=== PATIENT | male | born 2000 | race Caucasian/White ===

== ENCOUNTER 2021-12-18 12:34 | Emergency (ER) | payer OTHER, SELFPAY ==
[2021-12-18] VITALS (10 sets, daily range): BP systolic 95–120; BP diastolic 73–79; PULSE 50–84; RESP 12–22; TEMP 36.4; O2SAT 95–99
--- NOTE | ~2021-12-18 | CT_ITS ---
EXAMINATION: CT brain wo con DATE: 12/18/2021 14:54 INDICATION: Blurry vision. Paresthesias of right hand. TECHNIQUE: Computed tomography (CT) of the head was performed without intravenous contrast. The mA wa s adjusted according to patient size. Iterative reconstruction technique was employed. Exam dose: 60 5.33 mGy-cm total exam DLP. COMPARISON: None FINDINGS: Occasional septum pellucidum, normal variant. No intracranial mass lesion or hemorrhage or cerebrovascular accident. No midline shift or mass effect effect. No sellar or suprasellar mass lesio n. Normal ventricular size. No subdural or epidural hematoma. There is patchy soft tissue thickening of the ethmoid air cells. Included paranasal sinuses and masto id air cells are otherwise unremarkable. No fracture or bone destruction of the cranial vault. IMPRESSION: No significant intracranial abnormality or skull fracture Bilateral ethmoid soft tissue thickening Reviewed, dictated and finalized at [facility]. Reviewed, dictated and finalized at [facility].
--- NOTE | 2021-12-18 13:21 | ECG_ITS ---
Measurements Intervals [place] Rate: 60 P: 22 ID: [id number] QRS: 4 QRSD: 114 T: 32 QT: 381 QTc: 382 Interpretive Statements SINUS RHYTHM WITH MARKED SINUS ARRHYTHMIA VOLTAGE CRITERIA FOR LVH MINIMAL Q WAVES- HIGH LATERAL LEADS BASELINE WANDER- V1-V2 BORDERLINE ECG NO PREVIOUS ECG AVAILABLE FOR COMPARISON Electronically Signed On 12-18-2021 14:04:19 CDT by Venkata Nunez D.O.
[2021-12-18 13:51] LABS: Basophils Absolute Auto 0.1 K/mm3 (0.0-0.1); Basophils Percent Auto 0.7 % (0.2-1.2); Eosinophils Absolute Auto 0.1 K/mm3 (0-0.3); Eosinophils Percent Auto 1.6 % (0-4.4); Hemoglobin 15.9 g/dL (14.0-18.0); Immature Granulocyte Absolute 0.02 K/mm3 (0.00-0.031); Immature Granulocyte Percent A 0.3 % (0-0.5); Lymphocytes Absolute Auto 2.15 K/mm3 (0.9-3.2); Lymphocytes Percent Auto 28.8 % (18.3-44.2); Mean Corpuscular HGB Conc 33.8 g/dl (32-36); Mean Corpuscular Volume 94.6 fl (80-100); Mean Platelet Volume 9.9 fl (7.4-10.4); Monocytes Absolute Auto 0.6 K/mm3 (0.1-0.6); Monocytes Percent Auto 7.5 % (2.6-8.5); Neutrophils Absolute Auto 4.6 K/mm3 (1.3-6.7); Neutrophils Percent Auto 61.1 % (45.5-73.1); Platelet Count Result 197 k/mm3 (150-375); Red Blood Count 4.97 M/mm3 (4.6-6.20); Red Cell Distribution Width 11.9 % (11.5-14.5); White Blood Count 7.5 K/mm3 (4.5-10.0)
[2021-12-18 14:00] LABS: Alanine Aminotransferase 46 U/L (6-50); Albumin Level 4.5 g/dL (3.5-5.1); Alkaline Phosphatase 94 U/L (38-126); Anion Gap 11 mmol/L (8-16); Aspartate Amino Transferase 26 U/L (17-59); Bilirubin,Total 0.5 mg/dL (0.2-1.3); Blood Urea Nitrogen 18 mg/dL (9-20); Calcium 9.2 mg/dL (8.4-10.2); Carbon Dioxide 27 mmol/L (22-30); Chloride 99 mmol/L (98-107); Estimated CRCL calculation 162 ml/min; Estimated Glomerular Filt Rate > 60; Glucose 100 mg/dL (65-110); Potassium 4.3 mmol/L (3.4-5.0); Sodium 137 mmol/L (137-145)
--- NOTE | 2021-12-18 14:43 | ED.NEUROSD ---
HPI - Neuro Symptoms/Deficit General Chief Complaint: Neuro Symptoms/Deficit Stated Complaint: BLURRY VISION, HAND NUMBNESS SINCE YESTERDAY Time Seen by Provider: 12/18/21 14:23 History of Present Illness HPI Narrative: Patient is a healthy 21-year-old male here for evaluation with his grandmother for evaluation of a episode of right hand paresthesias and blurry vision yesterday. Patient states that he was driving his vehicle when he noticed that his vision in both eyes slightly blurry. He was still able to see out of both eyes. This lasted for several seconds. He then noticed a [id number]-[id number] sensation in his right hand, that lasted for about 15 minutes, resolved without intervention. Patient saw his primary care doctor today who recommended ED evaluation. Patient tells me that he has been experiencing intermittent blurry vision for the past 2 years. States it will always last for seconds at a time and resolve without intervention. He has not seen an eye doctor in several years, does wear corrective lenses, has not had this prescription updated. No headaches, nausea, vomiting, dizziness, changes to weight, pain in eyes or eye discharge. Review of Systems Review of Systems: Gen.: Denies fevers or chills Eyes: Reports blurry vision. Denies eye pain ENT: Denies congestion Respiratory: Denies shortness of breath or cough CV: Denies chest pain or palpitations GI: Denies abdominal pain nausea, emesis or diarrhea denies burning, urgency, frequency or hematuria Musculoskeletal: Denies back pain or muscle pain Neuro: Reports paresthesias in right hand. Skin: Denies rash Except as documented, all other systems reviewed and negative Exam Narrative: APPEARANCE: Well appearing, no pain in distress, well-nourished. Head: Normocephalic and atraumatic. EYES: Fatigable horizontal nystagmus noted with EOMs. Pupils are equal round and reactive to light. NOSE: No nasal drainage EARS: External ear normal in appearance THROAT: Oropharynx is clear. Mucous membranes are moist. NECK: Supple. No adenopathy, no masses. RESPIRATORY: Airway patent, respirations nonlabored. Clear to auscultation bilaterally, no rales, rhonchi, wheezing. CARDIOVASCULAR: Strong radial pulse. Regular rate and rhythm without murmurs, rubs, or gallops. ABDOMINAL: Normoactive bowel sounds. Soft, nontender, nondistended. No rebound tenderness or guarding. MUSCULOSKELETAL: Extremities are warm and well-perfused. Moves all extremities well. No edema. NEURO: 5-5 strength in bilateral upper and lower extremities. Full range of motion in hands and feet. sensation intact along distribution of median, ulnar, superficial branch of radial nerve. Normal speech. Cranial nerves II through XII intact. SKIN: Skin is warm and dry. No rashes. PSYCHIATRIC: Normal affect/mood. Course Vital Signs Vital signs: Vital Signs Temperature 97.6 F 12/18/21 13:17 Pulse Rate 50 L 12/18/21 13:17 Respiratory Rate 12 12/18/21 13:17 Blood Pressure 95/79 L 12/18/21 13:17 Pulse Oximetry 99 12/18/21 13:17 Temperature 97.6 F 12/18/21 13:17 Pulse Rate 83 12/18/21 16:14 Respiratory Rate 20 12/18/21 16:14 Blood Pressure 120/73 12/18/21 16:14 Pulse Oximetry 97 12/18/21 16:14 MDM - Neuro Symptoms/Deficit MDM Narrative Medical decision making narrative: 21-year-old male here for evaluation of an episode of right hand paresthesias lasting about 15 minutes yesterday and some blurry vision that he has had for several years. He is nontoxic-appearing on exam, has a normal neurologic exam and is currently asymptomatic. Hand exam is unremarkable, he has 5 out of 5 strength, sensation intact throughout the hand, and strong distal pulses and brisk capillary refill. Basic labs unremarkable. EKG unremarkable. Head CT without acute ischemic findings. Unclear etiology of patient's symptoms, given his lack of risk factors and normal head CT, very unlikely to be acute intracranial pr
[2021-12-18 14:56] LABS: Magnesium 1.9 mg/dL (1.6-2.3)
== END 2021-12-18 16:16 | disposition home or self-care (01) ==
PROVIDERS: Emergency Medicine; Physician Assistant; Emergency Provider Emergency Medicine
DX: R20.2 Paresthesia of skin (principal)
CPT/HCPCS: 36415; 70450; 80053; 83735; 85025; 93005; 99284